=== PATIENT | female | born 1995 | race Caucasian/White ===

== ENCOUNTER 2018-03-21 23:33 | Emergency (ER) | payer OTHER ==
[2018-03-21 23:46] VITALS: BMI 20.7
--- NOTE | 2018-03-22 00:09 | PDOC ---
History of Present Illness - General Chief Complaint: Sore Throat Stated Complaint: Sore Throat Time Seen by Provider: 03/22/18 00:05 - History of Present Illness Initial Comments: 03/22/18 00:08 Patient is a 23 year old female with no significant past medical history, presented with multiple episodes of nose bleeding from the right nostril today. Patient reported having a headache last night, and today had episodes of nose bleed. Patient tried to stop the bleeding by looking up, reported swallowing it , thereafter subsequently started spitting blood. Patient denies any trauma or foreign body insertion. Denies dizziness, fever, chills, shortness of breath, nasal congestion, cough, rhinorrhea, difficulty swallowing. Denies chest pain, palpitations, abdominal pain, diarrhea, constipation, urinary symptoms. Past History - Past Medical History Allergies/Adverse Reactions: Allergies Allergy/AdvReac Type Severity Reaction Status Date / Time No Known Allergies Allergy Verified 03/21/18 23:46 Anemia: Yes COPD: No - Suicide/Smoking/Psychosocial Hx Smoking History: Never smoked Hx Alcohol Use: No Drug/Substance Use Hx: No Review of Systems - Review of Systems Constitutional: No: Chills, Fever, Malaise, Weakness HEENTM: Yes: Nose Bleeding. No: Recent change in vision, Ear Discharge, Nose Pain, Nose Congestion, Difficulty Swallowing Respiratory: No: Cough, Shortness of Breath Cardiac (ROS): No: Chest Pain, Lightheadedness, Palpitations ABD/GI: No: Abdominal Distended, Constipated, Diarrhea, Nausea, Vomiting, Abdominal cramping : No: Burning, Dysuria, Discharge Musculoskeletal: No: Back Pain, Joint Pain Neurological: Yes: Headache. No: Numbness, Tingling, Weakness *Physical Exam - Vital Signs Last Vital Signs Temp Pulse Resp BP Pulse Ox 99.4 F 78 18 117/64 100 03/21/18 23:40 03/21/18 23:40 03/21/18 23:40 03/21/18 23:40 03/21/18 23:40 - Physical Exam Comments: 03/22/18 00:21 General: awake, alert, oriented, not in acute distress Head: no signs of head trauma HEENT: PERRLA, EOMI, sclerae anicteric, no nasal discharge, no sinus tenderness , +pharyngeal erythema, TMs normal Neck: soft, supple, trachea midline, right mandibular LAD, no thyroid enlargement Lungs:clear to auscultation bilaterally Heart: regular rate and rhythm, normal S1/S2, no m,r,g Abdomen: soft, nontender, nondistended, NABS Ext: +2 pulses, no peripheral edema, cyanosis, clubbing Moderate Sedation - Procedure Monitoring Vital Signs: Procedure Monitoring Vital Signs Temperature 99.4 F 03/21/18 23:40 Pulse Rate 78 03/21/18 23:40 Respiratory Rate 18 03/21/18 23:40 Blood Pressure 117/64 03/21/18 23:40 O2 Sat by Pulse Oximetry (%) 100 03/21/18 23:40 ED Treatment Course - LABORATORY CBC & Chemistry Diagram: 03/22/18 01:45 03/22/18 01:45 Medical Decision Making - Medical Decision Making 03/22/18 02:02 Patient is a 23 year old female presented with epistaxis. CBC CMP Coags 03/22/18 03:15 Hgb 8.1 No more episodes of epistaxis. Will obs patient for now. repeat CBC after 6 hours. *DC/Admit/Observation/Transfer Diagnosis at time of Disposition: Epistaxis - Discharge Dispostion Decision to Admit order: Yes - Referrals Referrals: Vianey Dennison MD [Primary Care Provider] - - Patient Instructions - Post Discharge Activity
--- NOTE | 2018-03-22 01:49 | PDOC ---
Attending Attestation - HPI HPI: 03/22/18 02:01 The patient is a 23-year-old female with no PMH presents to the emergency department with spitting up blood. The patient reports earlier today she had an episode of R. nare nosebleed, to which she tilted her head back and swallowed the blood. The patient reports since then shes been having bouts of spitting up blood. Denies trauma or nasal congestions. Denies fever chills chest pain or SOB. Allergies: NKA PCP: Vianey Velásquez MD - Physicial Exam PE: 03/22/18 02:01 GENERAL: Awake, alert, and fully oriented, in no acute distress EYES: PERRLA, EOMI, sclera anicteric, conjunctiva clear ENT: +Right nare lateral aspect abraded skin, hemodynamically stable, no bleeding in the back, septum normal, L. nare normal. Moist mucosa NECK: Normal ROM, supple, no lymphadenopathy, JVD, or masses LUNGS: Breath sounds equal, clear to auscultation bilaterally. No wheezes, and no crackles HEART: Regular rate and rhythm, normal S1 and S2, no murmurs, rubs or gallops - Medical Decision Making 03/22/18 02:01 Documentation prepared by Nadia Figueroa, acting as medical administrative for Diana Paz MD. <Nadia Figueroa - Last Filed: 03/22/18 02:01> - Resident Resident Name: Charlene Hart - ED Attending Attestation I have performed the following: I have examined & evaluated the patient, The case was reviewed & discussed with the resident, I agree w/resident's findings & plan - Medical Decision Making 03/22/18 03:11 Pt has low HB/HCT; she will be admitted to ED observation for a repeat Hb/HCT to be done in 6 hrs. 03/22/18 04:53 Pt is awaiting 2nd CBC to be drawn at 7am to 8am. If stable she may be discharged <Diana Paz - Last Filed: 03/22/18 04:53>
[2018-03-22 01:51] LABS: BASO % 0.7 % (0-2.0); EOS % 1.4 % (0-4.5); HEMATOCRIT 25.3 % (32.4-45.2); HEMOGLOBIN 8.1 GM/dL (10.7-15.3); LYMPH % 29.6 % (8-40); MCH 20.3 pg (25.7-33.7); MEAN CELL VOLUME 63.5 fl (80-96); MEAN PLT VOLUME 7.9 fl (7.5-11.1); MONO % 10.8 % (3.8-10.2); NEUT % 57.5 % (42.8-82.8); PLATELET COUNT 330 K/MM3 (134-434); RBC 3.98 M/mm3 (3.60-5.2); RDW 17.7 % (11.6-15.6); WHITE BLOOD COUNT 4.7 K/mm3 (4.0-10.0)
[2018-03-22 02:14] LABS: INR 1.13 (0.83-1.09); PROTHROMBIN TIME (PATIENT) 13.3 SEC (9.7-13.0)
[2018-03-22 02:24] LABS: ALBUMIN 4.2 g/dl (3.4-5.0); ALK PHOS 66 U/L (45-117); ANION GAP 8 MMOL/L (8-16); BILIRUBIN,TOTAL 0.5 mg/dL (0.2-1); BLOOD UREA NITROGEN 14 mg/dL (7-18); CALCIUM 8.8 mg/dL (8.5-10.1); CHLORIDE 104 mmol/L (98-107); CO2 24 mmol/L (21-32); CREATININE 0.5 mg/dL (0.55-1.3); GLUCOSE,RANDOM 85 mg/dL (74-106); POTASSIUM 3.9 mmol/L (3.5-5.1); SGOT/AST 18 U/L (15-37); SGPT/ALT 20 U/L (13-61); SODIUM 136 mmol/L (136-145); TOT PROT 7.7 g/dl (6.4-8.2)
[2018-03-22] MEDS ORDERED: OXYMETAZOLINE 0.05% NASAL SOLUTION 15 ML BOTTLE NS ONE (05:08)
--- NOTE | 2018-03-22 05:09 | HOSP ---
Subjective - Review of Symptoms Events since last encounter: patient presented to the hospital with nasal bleeding from the right nostril, this is the first time she has it, she denied any trauma to the nose, no penetrating objects were inserted. she stated that for the past 2 days she felt her nose is dry more than usual. she denied any SOB, RIOS patient was noted to have anemia on the CBC without any prior documented labs General: No: Chills, Night Sweats, Fatigue, Malaise, Appetite, Other HEENT: Yes: Head Aches, Sinus Congestion, Other (epistaxis) Pulmonary: No: Dyspnea, Cough, Pleuritic Chest Pain, Other Cardiovascular: No: Chest Pain, Palpitations, Orthopnea, Paroxysmal Noc. Dyspnea , Edema, Light Headedness, Other Gastrointestinal: No: Nausea, NOSYM, Vomiting, Abdominal Pain, Diarrhea, Constipation, Melena, Hematochezia, Other Genitourinary: No: Dysuria, NOSYM, Frequency, Incontinence, Hematuria, Retention , Other Musculoskeletal: No: No Symptoms, Back Pain, Crepitus, Decreased ROM, Extremity Pain, Joint Pain, Joint Swelling, Muscle Pain, Muscle Cramps, Muscle Weakness, Other Neurological: No: Weakness, Numbness, Incoordination, Change in speech, Confusion, Seizures, Other Physical Examination Vital Signs: Vital Signs Temperature 99.4 F 03/21/18 23:40 Pulse Rate 78 03/21/18 23:40 Respiratory Rate 18 03/21/18 23:40 Blood Pressure 117/64 03/21/18 23:40 O2 Sat by Pulse Oximetry (%) 100 03/21/18 23:40 Constitutional: Yes: Well Nourished, No Distress, Calm Eyes: Yes: Conjunctiva Clear, EOM Intact HENT: Yes: Atraumatic, Normocephalic, Epistaxis Neck: Yes: WNL, Supple, Trachea Midline Cardiovascular: Yes: WNL, Regular Rate and Rhythm, S1, S2 Respiratory: Yes: WNL, Regular, CTA Bilaterally Gastrointestinal: Yes: WNL, Normal Bowel Sounds, Soft Musculoskeletal: Yes: WNL Extremities: Yes: WNL Integumentary: Yes: WNL Neurological: Yes: WNL, Alert, Oriented Labs: CBC, BMP 03/22/18 01:45 03/22/18 01:45 Hospitalist Encounter Assessment: epistatxis 2/2 dryness consider saline nasal was ayr saline gel avoid trauma to the nose repeat CBC if stable then patient can be d/c to follow up with her PCP and ENT unless there is an acute event that prevents the patient from being d/c
[2018-03-22] MEDS ORDERED: SODIUM CHLORIDE NASAL SPRAY 44 ML BOTTLE NS PRN (05:16)
--- NOTE | 2018-03-22 07:07 | PDOC ---
*Physical Exam - Vital Signs Last Vital Signs Temp Pulse Resp BP Pulse Ox 99.4 F 78 18 117/64 100 03/21/18 23:40 03/21/18 23:40 03/21/18 23:40 03/21/18 23:40 03/21/18 23:40 ED Treatment Course - LABORATORY CBC & Chemistry Diagram: 03/22/18 01:45 03/22/18 01:45 - ADDITIONAL ORDERS Additional order review: Laboratory Results 03/22/18 03/22/18 01:45 01:45 PT with INR 13.30 H INR 1.13 H Sodium 136 Potassium 3.9 Chloride 104 Carbon Dioxide 24 Anion Gap 8 BUN 14 Creatinine 0.5 L Creat Clearance w eGFR > 60 Random Glucose 85 Calcium 8.8 Total Bilirubin 0.5 AST 18 ALT 20 Alkaline Phosphatase 66 Total Protein 7.7 Albumin 4.2 03/22/18 01:45 RBC 3.98 MCV 63.5 L MCHC 32.0 RDW 17.7 H MPV 7.9 Neutrophils % 57.5 Lymphocytes % 29.6 Monocytes % 10.8 H Eosinophils % 1.4 Basophils % 0.7 - Medications Given in the ED: ED Medications Discontinued Medications Generic Name Dose Route Start Last Admin Trade Name Freq PRN Reason Stop Dose Admin Oxymetazoline HCl 1 spray 03/22/18 05:08 03/22/18 05:55 Afrin - NS 03/22/18 05:09 Not Given ONCE ONE Medical Decision Making - Medical Decision Making 03/22/18 07:05 Veda Doss is an otherwise healthy 23yo woman who presented overnight with epistaxis from the right nostril. She did not require nasal packing. However, she was found to be anemic with hgb at 8. - No active epistaxis - Given episodes of bleeding within the past 24hrs, plan to repeat CBC at 8am. If hgb is stable, will d/c home. *DC/Admit/Observation/Transfer Diagnosis at time of Disposition: Epistaxis - Referrals - Patient Instructions - Post Discharge Activity
[2018-03-22 07:11] VITALS: TEMP 98.3
--- NOTE | 2018-03-22 07:11 | PDOC ---
*Physical Exam - Vital Signs Last Vital Signs Temp Pulse Resp BP Pulse Ox 99.4 F 78 18 117/64 100 03/21/18 23:40 03/21/18 23:40 03/21/18 23:40 03/21/18 23:40 03/21/18 23:40 ED Treatment Course - LABORATORY CBC & Chemistry Diagram: 03/22/18 08:20 03/22/18 01:45 - ADDITIONAL ORDERS Additional order review: Laboratory Results 03/22/18 03/22/18 01:45 01:45 PT with INR 13.30 H INR 1.13 H Sodium 136 Potassium 3.9 Chloride 104 Carbon Dioxide 24 Anion Gap 8 BUN 14 Creatinine 0.5 L Creat Clearance w eGFR > 60 Random Glucose 85 Calcium 8.8 Total Bilirubin 0.5 AST 18 ALT 20 Alkaline Phosphatase 66 Total Protein 7.7 Albumin 4.2 03/22/18 01:45 RBC 3.98 MCV 63.5 L MCHC 32.0 RDW 17.7 H MPV 7.9 Neutrophils % 57.5 Lymphocytes % 29.6 Monocytes % 10.8 H Eosinophils % 1.4 Basophils % 0.7 - Medications Given in the ED: ED Medications Discontinued Medications Generic Name Dose Route Start Last Admin Trade Name Freq PRN Reason Stop Dose Admin Oxymetazoline HCl 1 spray 03/22/18 05:08 03/22/18 05:55 Afrin - NS 03/22/18 05:09 Not Given ONCE ONE Medical Decision Making - Medical Decision Making 03/22/18 07:09 Veda Doss is an otherwise healthy 23yo woman who presented with multiple episodes of epistaxis from the right nostril. She did not require nasal packing , and she no longer has any active bleeding. However, she was found to be anemic with hgb at 8. - Given episodes of bleeding within the past 24hrs, was admitted to ED obs for monitoring - Plan to repeat hgb at 8am. If stable, likely to discharge home. 03/22/18 08:38 - Repeat hgb 7.7 - Plan to d/c home. As pt has been admitted to ED obs, sent microblog to med/ surg regarding discharge 03/22/18 09:03 - Second microblog sent to med surg. Requested to discharge from the emergency department. - Patient discharged home after detailed discussion of home care for epistaxis, use of saline spray and humidifiers, and epistaxis prevention. Discussed return precautions at length. Applied vaseline to R nare to demonstrate home care to pt. Both patient and her mother reported understanding. Discussed with Dr Delaney. Amanda Nguyen PGY1 *DC/Admit/Observation/Transfer Diagnosis at time of Disposition: Epistaxis - Discharge Dispostion Disposition: HOME Condition at time of disposition: Stable - Referrals Referrals: Vianey Dennison MD [Primary Care Provider] - - Patient Instructions Printed Discharge Instructions: DI for Nosebleed Additional Instructions: Discharge Instructions: You were seen in the emergency department for a nosebleed. Your bleeding was stopped. You had blood tests completed showing that you have low hemoglobin levels, called anemia. This did not change after the bleeding, but you should probably be seen by a regular doctor to follow up. Home Care: - You have been given a saline nasal spray. Use this as often as needed in both nostrils to prevent nasal dryness. - Apply vaseline twice per day into your nostril. This will help keep the inside of the nose moist. Use your finger or a q-tip to spread the vaseline evenly around the inside of your nostril. - Get a humidifier and place it by your bed. Nosebleeds are often caused by dry air - If your nose starts bleeding, hold firm pressure just under the bony part of your nose. Hold pressure for at least 5 minutes. DO NOT let go to see if your nose is still bleeding. - DO NOT blow your nose following a nosebleed for at least 24-48 hours. This will probably start your nose bleeding again. - DO NOT pick your nose or rub the inside of your nose with a tissue. This could restart the bleeding. - If you need to cough or sneeze, try to sneeze with your mouth wide open to prevent irritation to your nose. Follow Up: - You have been referred to Dr Jo, who is an ENT (ear nose and throat) specialist. You should follow up within the next 1-2 weeks for evaluation of your nosebleeds. - You were found to have anemia. You will need to follow up with a primary doctor. You have been referred to the internal medicine resident clinic for follow up. Please make an appointment within the next 1-2 weeks. - Seek medical care if you have nosebleeds that do not stop with the instructions mentioned above, if your nose bleed is severe, if you become lightheaded, or if you have any other medical emergency. Instrucciones de descarga: Usted fue visto en el departamento de emergencias por andrea hemorragia nasal. [place] sangrado se detuvo. Se le realizaron anlisis de betsy que muestran que tiene niveles bajos de hemoglobina, llamada anemia. [place] no cambi despus de la hemorragia, gardenia es probable que deba consultar a un mdico de cabecera para realizar un seguimiento. Cuidados en el hogar: - Le kate administrado un spray nasal salino. Use esto pierre a menudo sandy sea necesario en ambas fosas nasales para prevenir la sequedad nasal. - Aplique vaselina dos veces al da en la fosa nasal. [place] ayudar a mantener hmedo el interior de la nariz. Use barrow dedo o andrea punta q para esparcir la vaselina uniformemente alrededor del interior de barrow fosa nasal. - Consigue un humidificador y colcalo junto a tu cama. Las hemorragias nasales a menudo son causadas por aire seco - Si barrow nariz comienza a sangrar, mantenga andrea presin firme courtney debajo de la parte sea de barrow nariz. Mantenga la presin lamine al menos 5 minutos. NO lo deje ir para nikki si barrow nariz todava est sangrando. - NO se sople la nariz despus de andrea hemorragia nasal lamine al menos 24-48 horas. [place] probablemente comenzar a sangrar barrow nariz nuevamente. - NO se toque la nariz ni frote el interior de la nariz con un pauelo. [place] podra reiniciar el sangrado. - Si necesita toser o estornudar, intente estornudar con la boca mendy abierta para evitar la irritacin de la nariz. Seguir: - Castano sido referido al Dr. Jo, que es un especialista en ORL (narnory y margariat) . Debe realizar un seguimiento dentro de las prximas 1 a 2 semanas para evaluar brandon hemorragias nasales. - Se encontr que tenas anemia. Tendr que hacer un seguimiento con un mdico de cabecera. Se le castano remitido a la clnica de medicina interna para barrow seguimiento. Por favor alexia andrea mary dentro de las prximas 1-2 semanas. - Busque atencin mdica si tiene hemorragias nasales que no se detienen con las instrucciones mencionadas anteriormente, si la hemorragia nasal es grave, si se siente mareado o si tiene alguna otra emergencia mdica. Print Language: L[place] - Post Discharge Activity
[2018-03-22 08:29] LABS: BASO % 0.8 % (0-2.0); EOS % 2.1 % (0-4.5); HEMATOCRIT 24.2 % (32.4-45.2); HEMOGLOBIN 7.7 GM/dL (10.7-15.3); LYMPH % 23.5 % (8-40); MCH 20.1 pg (25.7-33.7); MCHC 31.8 g/dl (32.0-36.0); MEAN CELL VOLUME 63.4 fl (80-96); MEAN PLT VOLUME 7.8 fl (7.5-11.1); MONO % 10.4 % (3.8-10.2); NEUT % 63.2 % (42.8-82.8); PLATELET COUNT 299 K/MM3 (134-434); RBC 3.82 M/mm3 (3.60-5.2); RDW 18.1 % (11.6-15.6); WHITE BLOOD COUNT 4.1 K/mm3 (4.0-10.0)
[2018-03-22 11:15] VITALS: BP 110/63; PULSE 92
== END 2018-03-22 11:23 | disposition home or self-care (01) ==
LOC: JER 23:33 → UNDOADMOB 03-22 05:54 → JERBED 03-22 05:54 → JER 03-22 11:23
DX: R04.0 Epistaxis (principal)
CPT/HCPCS: 36415; 80053; 85025; 85610; 99282-25

== ENCOUNTER 2018-06-28 20:57 | Emergency (ER) | payer OTHER ==
[2018-06-28 21:04] VITALS: BP 131/78; PULSE 79; TEMP 97.8; BMI 20.4
--- NOTE | 2018-06-28 21:34 | PDOC ---
History of Present Illness - General Chief Complaint: Cold Symptoms Stated Complaint: COLD SYMPTOM Time Seen by Provider: 06/28/18 21:25 - History of Present Illness Initial Comments: 06/28/18 21:32 23-year-old female without comorbidities presents for evaluation of cough and nasal congestion without fever 2 days Past History - Past Medical History Allergies/Adverse Reactions: Allergies Allergy/AdvReac Type Severity Reaction Status Date / Time No Known Allergies Allergy Verified 06/28/18 21:03 Home Medications: Ambulatory Orders NK [No Known Home Medication] 03/22/18 Anemia: Yes COPD: No - Immunization History Immunization Up to Date: Yes - Suicide/Smoking/Psychosocial Hx Smoking History: Unknown if ever smoked Have you smoked in the past 12 months: No Information on smoking cessation initiated: No Hx Alcohol Use: No Drug/Substance Use Hx: No Review of Systems - Review of Systems Constitutional: No: Fever HEENTM: Yes: Nose Congestion Respiratory: Yes: Cough *Physical Exam - Vital Signs Last Vital Signs Temp Pulse Resp BP Pulse Ox 97.8 F 79 16 131/78 100 06/28/18 21:02 06/28/18 21:02 06/28/18 21:02 06/28/18 21:02 06/28/18 21:02 - Physical Exam Comments: 06/28/18 21:33 HEAD: NC/AT EYES: Conjuntiva clear Ears: Canals and TM's normal NOSE: No d/c THROAT: Moist mucous membrances, oral pharanx clear, uvula midline NECK: Supple without adenopathy CARDIAC: S1 S2 LUNGS: CTA Full and Equal breath sounds ABDOMEN: Soft NT ND MS: Full ROM in all joints without edema NEUROLOGIC: No gross sensory or motor deficits, NVID SKIN: Normal color and temperature no lesions or rashes Moderate Sedation - Procedure Monitoring Vital Signs: Procedure Monitoring Vital Signs Temperature 97.8 F 06/28/18 21:02 Pulse Rate 79 06/28/18 21:02 Respiratory Rate 16 06/28/18 21:02 Blood Pressure 131/78 06/28/18 21:02 O2 Sat by Pulse Oximetry (%) 100 06/28/18 21:02 Medical Decision Making - Medical Decision Making 06/28/18 21:33 Viral upper respiratory illness discussed use of Tylenol and Motrin and follow- up with PCP in one to 2 days for further evaluation *DC/Admit/Observation/Transfer Diagnosis at time of Disposition: Viral upper respiratory illness - Discharge Dispostion Disposition: HOME Condition at time of disposition: Stable Decision to Admit order: No - Referrals Referrals: Vianey Dennison MD [Primary Care Provider] - - Patient Instructions Printed Discharge Instructions: DI for Viral Upper Respiratory Infection -- Adult Additional Instructions: Regrese a la jf de emergencias por empeoramiento de los sntomas. Por favor, alexia un seguimiento con land mdico de atencin primaria de 1 a 2 beavers para andrea evaluacin adicional y opciones de tratamiento. Tylenol y Motrin sandy se indica en alycia de desarrollar fiebre. Si la prueba de estreptococos hoy fue negativa y se envi andrea cultura. return to the emergency room for worsening symptoms. Please follow-up with your primary care physician one to 2 days for further evaluation and treatment options. Tylenol and Motrin as directed should you develop a fever. If strep test today was negative and a culture was sent. - Post Discharge Activity
== END 2018-06-28 21:36 | disposition home or self-care (01) ==
LOC: JERFT 20:57
DX: J06.9 Acute upper respiratory infection, unspecified (principal); B97.89 Other viral agents as the cause of diseases classified elsewhere
CPT/HCPCS: 87070; 87880; 99281-25